=== PATIENT | female | born 1980 ===

== ENCOUNTER → 2017-09-30 | Day surgery (SDC) | payer OTHER | END | disposition home or self-care (01) | LOC: EDBD → CIR.AMB 06:15 | DX: D48.1 Neoplasm of uncertain behavior of connective and other soft tissue (principal) ==

== ENCOUNTER 2020-11-24 06:23 | Day surgery (SDC) | payer OTHER | END 2020-11-24 09:50 | disposition home or self-care (01) | LOC: AMB-ENDOS 06:23 | PROVIDERS: ATTEND Colon & Rectal Surgery | DX: K62.89 Other specified diseases of anus and rectum (principal); K64.1 Second degree hemorrhoids; Z12.11 Encounter for screening for malignant neoplasm of colon; Z20.822 Contact with and (suspected) exposure to COVID-19 ==